=== PATIENT | female | born 2000 | race Two or more races ===

== ENCOUNTER 2022-01-20 01:49 | Emergency (ER) | payer OTHER ==
[~2022-01-20] VITALS: Ht 157.5 cm; Wt 65.8 kg
== END 2022-01-20 11:29 | disposition home or self-care (01) ==
LOC: ER 01:49
DX: K52.9 Noninfective gastroenteritis and colitis, unspecified (principal); Z20.822 Contact with and (suspected) exposure to COVID-19

== ENCOUNTER 2022-07-13 09:52 | Inpatient (IN) | payer OTHER ==
[~2022-07-13] VITALS: Ht 157.5 cm; Wt 66.2 kg
--- NOTE | 2022-07-13 10:02 | NUR ---
SE RECIBE PTE ALERTA Y ORIENTADA X3 LA MISMA REFIERE PRESENTAR VOMITOS X4 EN EL TIFFANI DE HOY Y DEBRA DOLOR ABDMINAL. LA ULTIMA COMIDA FUE FRITURA A LAS 1200AM.
--- NOTE | 2022-07-13 12:02 | NUR ---
PTE EVALUADO POR DR DYLLAN TOMPKINS [place]DE[place] MED SE EUDCA A PTE SOBRE EL MSIMO Y REFIERE ENTENDER. SE LLEVAN ACABO ORDENES MANTENIENDO MEDIDAS ACEPTICAS. PTE PEND A SONO.
--- NOTE | 2022-07-13 16:17 | NUR ---
SE RECIBE PTE DEL TURNO ANTERIOR, ALERTA Y ORIENTADA EN JOHAN SHANEL ESFERAS, UBICADA EN MIRANDA, NIVEL MAS BAJO, FRANKEL DE IDENTIFICACION Y BARANDAS ELEVADAS POR PRECAUCION. SE OBSERVA CON BUEN PATRON RESPIRATORIO, PIEL TIBIA AL TACTO. IV PATENTE Y GIANCARLO DE EDEMA O ERITEMA RECIBIENDO 0.9% NSS @150ML/HR. PENDIENTE CONSULTA CON MEDICINA INTERNA (DRA LAMAS) Y CIRUGIA (DR ERIC). SE MANTIENE BAJO OBSERVACION.
== END 2022-07-15 17:38 | disposition home or self-care (01) | DRG 343 ==
LOC: ER 09:52 → SURG 17:05 → MEDJ 17:05 → SURG 17:39
PROVIDERS: Surgery; ADMIT Specialist; ATTEND Specialist
PROC: BW21YZZ Computerized Tomography (CT Scan) of Abdomen and Pelvis using Other Contrast (ICD-10-PCS; 2022-07-13)
PROC: 0DTJ4ZZ Resection of Appendix, Percutaneous Endoscopic Approach (ICD-10-PCS; principal; 2022-07-13 17:30)
DX: K35.890 Other acute appendicitis without perforation or gangrene (principal); Z20.822 Contact with and (suspected) exposure to COVID-19